=== PATIENT | female | born 1940 | race Hispanic/Latino ===

== ENCOUNTER 2017-08-26 11:48 | Emergency (ER) | payer OTHER ==
[~2017-08-26] VITALS: Ht 139.7 cm; Wt 55.8 kg
== END 2017-08-26 16:07 | disposition home or self-care (01) ==
LOC: FSED 11:48
DX: R10.11 Right upper quadrant pain (principal); I10 Essential (primary) hypertension; F17.210 Nicotine dependence, cigarettes, uncomplicated
CPT/HCPCS: 74177; 76705; 80053; 85025; 99284